=== PATIENT | male | born 1950 | race Caucasian/White ===

== ENCOUNTER 2019-07-16 20:44 | Inpatient (IN) | payer MEDICARE ==
[~2019-07-16] VITALS: Ht 172.7 cm; Wt 88.6 kg
[2019-07-16 21:15] LABS: BASOPHILS ABSOLUTE AUTO 0.07 K/mm3 (0.00-0.23); BASOPHILS PERCENT AUTO 1 % (0-2); EOSINOPHILS PERCENT AUTO 6 % (0-6); Hematocrit 42.2 % (37.0-53.0); Hemoglobin 13.6 g/dL (13.5-17.5); IMMATURE GRAN ABSOLUTE AUTO 0.09 K/mm3 (0.00-0.10); IMMATURE GRAN PERCENT AUTO 1 % (0-1); LYMPHOCYTES PERCENT AUTO 15 % (21-46); MONOCYTES ABSOLUTE AUTO 0.66 K/mm3 (0.16-1.47); MONOCYTES PERCENT AUTO 8 % (4-13); Mean Corpuscular HGB 30.7 pg (26.0-34.0); Mean Corpuscular HGB Conc 32.2 g/dL (31.5-36.5); Mean Corpuscular Volume 95 fL (80-100); Mean Platelet Volume 10.2 fL (9.1-12.4); NEUTROPHILS ABSOLUTE AUTO 6.14 K/mm3 (1.96-9.15); NEUTROPHILS PERCENT AUTO 70 % (41-73); Platelet Count 222 K/mm3 (150-400); RDW Coefficient Variation 13.7 % (11.7-14.2); Red Blood Cell Count 4.43 M/mm3 (4.30-5.90); White Blood Cell Count 8.76 K/mm3 (4.00-11.30)
[2019-07-16] MEDS ORDERED: ALLO300 PO (21:23)
[2019-07-16] MEDS ORDERED: ASCO500 PO (21:23)
[2019-07-16] MEDS ORDERED: Aspirin EC81 MG PO (21:23)
[2019-07-16] MEDS ORDERED: LISI5 PO (21:23)
[2019-07-16] MEDS ORDERED: MAGNESIUM OXID500 MG PO (21:23)
[2019-07-16] MEDS ORDERED: TAMS.4ER PO (21:24)
[2019-07-16] MEDS ORDERED: BASAGLAR K100 UNIT/1 SC (21:24)
[2019-07-16] MEDS ORDERED: Zocor40 MG PO (21:24)
[2019-07-16] MEDS ORDERED: ALOGLIPTIN6.25 MG PO (21:26)
[2019-07-16 21:31] LABS: International Normalized Ratio 1.09; Prothrombin Time Results 11.5 Sec (9.7-11.5)
[2019-07-16 21:35] LABS: Albumin, Blood 3.7 g/dL (3.4-5.0); Albumin/Globulin Ratio 1.3 (0.8-1.8); Bilirubin, Total 0.5 mg/dL (0.1-1.0); Bun/Creatinine Ratio 18.3 (12.0-20.0); Creatinine, Blood 1.53 mg/dL (0.60-1.20); Globulin, Blood 2.8 g/dL (2.2-4.0); Potassium, Blood 4.6 mmol/L (3.5-5.5); Total Protein, Blood 6.5 g/dL (6.4-8.2)
[2019-07-16] MEDS ORDERED: LOVA40 PO (22:18)
[2019-07-16] MEDS ORDERED: SILD50TA PO (22:19)
[2019-07-17 04:09] LABS: Hematocrit 37.9 % (37.0-53.0); Hemoglobin 12.3 g/dL (13.5-17.5); Mean Corpuscular HGB 31.3 pg (26.0-34.0); Mean Corpuscular HGB Conc 32.5 g/dL (31.5-36.5); Mean Corpuscular Volume 96 fL (80-100); Mean Platelet Volume 10.6 fL (9.1-12.4); Platelet Count 217 K/mm3 (150-400); RDW Coefficient Variation 13.8 % (11.7-14.2); Red Blood Cell Count 3.93 M/mm3 (4.30-5.90); White Blood Cell Count 9.06 K/mm3 (4.00-11.30)
[2019-07-17 04:35] LABS: Albumin, Blood 3.1 g/dL (3.4-5.0); Albumin/Globulin Ratio 1.3 (0.8-1.8); Bilirubin, Total 0.4 mg/dL (0.1-1.0); Bun/Creatinine Ratio 19.2 (12.0-20.0); Calcium, Blood 8.4 mg/dL (8.5-10.1); Creatinine, Blood 1.46 mg/dL (0.60-1.20); Globulin, Blood 2.3 g/dL (2.2-4.0); Potassium, Blood 4.2 mmol/L (3.5-5.5); Total Protein, Blood 5.4 g/dL (6.4-8.2)
--- NOTE | 2019-07-17 05:52 | NUR ---
END OF SHIFT SUMMARY PT TO PCU FROM ED VIA STRETCHER. ON RA. NONLABORED BREATHING, SP02>92%. DENIOES CP. DENIES SOB. PT ON BEDREST DUE TO MASSIVE BILAT PE'S. VSS. HEPARIN INFUSION STARTED, ADJUSTED AND BOLUS JUST GIVEN. NO SIGNS OF BLEEDING NOTED. ADMISSION PACKET COMPLETE. NEW IV STARTED IN ORDER TO INFUSE ORDERED FLUIDS, 1/2 NS. PT HAS RESTED T/O THE NIGHT POST ADMIT. HAS BEEN VERY POLITE AND COOPERATIVE AND AXO. USES CALL LIGHT APPROPRIATELY. BED IN LOWEST POSITIOPN. USING URINAL. WILL CONTINUE TO MONITOR UNTIUL SHIFT CHANGE.
--- NOTE | 2019-07-17 10:16 | NUR ---
ECHOCARDIOGRAM COMPLETED
--- NOTE | 2019-07-17 12:18 | NUR ---
PT AND S/O EXPRESSED THAT THEY DO NOT WISHED TO BE DISTURBED, PT EDUCATED ABOUT ROUNDING PT STS "I WANT LEFT ALONE FOR PEACE AND QUIET" PT AND SO ARE NOTED TO BE TALKING ON SPEAKER PHONE AT THIS TIME
--- NOTE | 2019-07-17 18:28 | NUR ---
SHIFT NOTE PT HAS DENIES SOB AND CP T/O SHIFT. NO SKIN ISSUES NOTED. VSS. PT AND S/O THIS AM HAD EXPRESSED UPSET THAT PT WAS AWOKE TO OBTAIN VITALS, CHEMBG AND GIVE MEDICATIONS PT STATED THAT HE DID NOT WANT DISTURBED UNLESS NEEDED, AGREED THAT PT WOULD BE LEFT UNDISTURBED UNTIL NEXT CHEMBG. AFTERNOON VITAL WAS HELD UNTIL CHEMBG PT HAD STATED HE WISHED TO BE LEFT ALONE, PT INSTURCTED TO USE CALL LIGHT FOR NEEDS PT AGREED. UPON TAKING EVEN CHEMBG PT BEGAN RAISING HIS VOICE AT THIS RN AND PCT HE HAD BEEN LEFT ALONE FOR 4 HOURS HE HAD ASKED, PT REMINDED THAT HE HAD DEMANDED TO BE LEFT ALONE BY STAFF. PT AND S/O DID EXPRESS THEY UNDERSTOOD THAT STAFF WAS FOLLOWING THEIR EXPLICIT REQUEST. PT AGREES, PT IS AGAIN UPDATED ON PENDING LABS, UPDATED ON RADIOLOGY REPORTS.
[2019-07-17] MEDS ORDERED: ALOGLIPTIN25 MG PO (19:33)
[2019-07-18 04:27] LABS: Calcium, Blood 8.5 mg/dL (8.5-10.1); Creatinine, Blood 1.39 mg/dL (0.60-1.20); Potassium, Blood 3.7 mmol/L (3.5-5.5)
--- NOTE | 2019-07-18 06:05 | NUR ---
PCU NOC SHIFT SUMMARY PATIENT ALERT AND ORIENTED T/O SHIFT X4. INDEPENDENT IN ROOM. AMBULATED TO BATHROOM WITH STEADY GAIT FOR A BOWEL MOVEMENT. PATIENT DENIES ANY PAIN T/O SHIFT. PATIENT REMAINS CLAMMY/DIAPHORETIC T/O SHIFT - PATIENT REPORTS THAT HE IS 'MOIST' AT BASELINE; MILD FEVER NOTED. PATIENT REMAINS IN SINUS AKIN T/O SHIFT IN THE MID TO HIGH 40'S-50'S - NO FURTHER CARDIAC EVENTS NOTED. PATIENT PLEASANT AND COOPERATIVE WITH CARE. EDUCATED EXTENSIVLY REGARDING ANTICOAGULATION AND PE. CALL LIGHT W/I REACH. WILL CONTINUE TO MONITOR AND GIVE REPORT TO DAYSHIFT RN.
[2019-07-18] MEDS ORDERED: ELIQUIS5 MG PO (09:15)
--- NOTE | 2019-07-18 09:20 | NUR ---
PT D/C HOME AFTER THOROUGH TEACHING VIA THIS RN AND DR ZEPEDA. RX'S FAXED TO [facility]. PT EXPRESSED UNDERSTANDING OF DC TEACHING, DENIES FURTHER NEEDS
== END 2019-07-18 09:50 | disposition home or self-care (01) | DRG 176 ==
LOC: ER 20:44 → PCU 20:45
PROVIDERS: Emergency Medicine; Hospitalist; ADMIT Internal Medicine
DX: I26.99 Other pulmonary embolism without acute cor pulmonale (principal); N17.9 Acute kidney failure, unspecified; E87.0 Hyperosmolality and hypernatremia; E78.5 Hyperlipidemia, unspecified; E11.22 Type 2 diabetes mellitus with diabetic chronic kidney disease; N18.3 Chronic kidney disease, stage 3 (moderate); I12.9 Hypertensive chronic kidney disease with stage 1 through stage 4 chronic kidney disease, or unspecified chronic kidney disease; E11.65 Type 2 diabetes mellitus with hyperglycemia; M10.9 Gout, unspecified; Z79.4 Long term (current) use of insulin; Z79.899 Other long term (current) drug therapy
CPT/HCPCS: 36415; 80048; 80053; 82947; 83036; 83880; 84484; 85025; 85027; 85303; 85306; 85610; 85730; 93005; 93010; 93306; 93970; 96365; 96366; 96372; 96374; 96375; 96376; 99285-25; A9270; G0378; J1644; J1650

== ENCOUNTER 2020-12-24 20:46 | Emergency (ER) | payer OTHER, MEDICARE ==
[~2020-12-24] VITALS: Ht 172.7 cm; Wt 88.0 kg
[~2020-12-24 20:46] MED LIST: ALLO300 PO; ALOGLIPTIN25 MG PO; ALOGLIPTIN6.25 MG PO; ASCO500 PO; Aspirin EC81 MG PO; BASAGLAR K100 UNIT/1 SC; ELIQUIS5 MG PO; LISI5 PO; LOVA40 PO; MAGNESIUM OXID500 MG PO; SILD50TA PO; TAMS.4ER PO; Zocor40 MG PO
== END 2020-12-24 21:22 | disposition home or self-care (01) ==
LOC: ER 20:46
DX: S40.021A Contusion of right upper arm, initial encounter (principal); Z79.01 Long term (current) use of anticoagulants; Z79.899 Other long term (current) drug therapy; W19.XXXA Unspecified fall, initial encounter
CPT/HCPCS: 99283

== ENCOUNTER 2022-03-05 08:20 | Emergency (ER) | payer OTHER ==
[~2022-03-05] VITALS: Ht 172.7 cm; Wt 81.7 kg
[2022-03-05 09:27] LABS: BASOPHILS ABSOLUTE AUTO 0.06 K/mm3 (0.00-0.23); BASOPHILS PERCENT AUTO 1 % (0-2); EOSINOPHILS ABSOLUTE AUTO 0.32 K/mm3 (0.00-0.68); EOSINOPHILS PERCENT AUTO 4 % (0-6); Hematocrit 49.3 % (37.0-53.0); Hemoglobin 16.6 g/dL (13.5-17.5); IMMATURE GRAN ABSOLUTE AUTO 0.04 K/mm3 (0.00-0.10); IMMATURE GRAN PERCENT AUTO 1 % (0-1); LYMPHOCYTES PERCENT AUTO 17 % (21-46); MONOCYTES ABSOLUTE AUTO 0.76 K/mm3 (0.16-1.47); MONOCYTES PERCENT AUTO 9 % (4-13); Mean Corpuscular HGB 30.8 pg (26.0-34.0); Mean Corpuscular HGB Conc 33.7 g/dL (31.5-36.5); Mean Corpuscular Volume 92 fL (80-100); Mean Platelet Volume 10.8 fL (9.1-12.4); NEUTROPHILS ABSOLUTE AUTO 5.92 K/mm3 (1.96-9.15); NEUTROPHILS PERCENT AUTO 70 % (41-73); Platelet Count 208 K/mm3 (150-400); RDW Coefficient Variation 14.8 % (11.7-14.2); RDW Standard Deviation 49.3 fL (35.1-46.3); Red Blood Cell Count 5.39 M/mm3 (4.30-5.90)
[2022-03-05 09:51] LABS: Albumin, Blood 3.6 g/dL (3.4-5.0); Albumin/Globulin Ratio 1.3 (0.8-1.8); Bilirubin, Total 0.6 mg/dL (0.1-1.0); Bun/Creatinine Ratio 22.9 (12.0-20.0); Calcium, Blood 9.3 mg/dL (8.5-10.1); Creatinine, Blood 1.66 mg/dL (0.60-1.20); Globulin, Blood 2.7 g/dL (2.2-4.0); Magnesium, Blood 2.3 mg/dL (1.6-2.4); Potassium, Blood 4.3 mmol/L (3.5-5.5); Thyroid Stimulating Hormone 4.17 uIU/mL (0.360-4.800); Total Protein, Blood 6.3 g/dL (6.4-8.2)
== END 2022-03-05 11:32 | disposition home or self-care (01) ==
LOC: ER 08:20
PROVIDERS: Emergency Medicine
DX: I47.1 Supraventricular tachycardia (principal); E11.9 Type 2 diabetes mellitus without complications; Z79.4 Long term (current) use of insulin; Z79.899 Other long term (current) drug therapy
CPT/HCPCS: 36415; 71045; 80053; 83735; 84443; 84484; 85025; 93005; 93010; J0153; J7030

== ENCOUNTER 2023-05-20 14:34 | Emergency (ER) | payer OTHER ==
[~2023-05-20] VITALS: Ht 172.7 cm; Wt 76.7 kg
[~2023-05-20 14:34] MED LIST changes: +ATOR40TA PO; +JARDIANCE25 MG PO
[2023-05-20 15:04] LABS: BASOPHILS ABSOLUTE AUTO 0.08 K/mm3 (0.00-0.23); BASOPHILS PERCENT AUTO 1 % (0-2); EOSINOPHILS ABSOLUTE AUTO 0.28 K/mm3 (0.00-0.68); EOSINOPHILS PERCENT AUTO 3 % (0-6); Hematocrit 49.6 % (37.0-53.0); Hemoglobin 16.7 g/dL (13.5-17.5); IMMATURE GRAN ABSOLUTE AUTO 0.04 K/mm3 (0.00-0.10); IMMATURE GRAN PERCENT AUTO 0 % (0-1); LYMPHOCYTES ABSOLUTE AUTO 1.75 K/mm3 (0.84-5.20); LYMPHOCYTES PERCENT AUTO 19 % (21-46); MONOCYTES ABSOLUTE AUTO 0.67 K/mm3 (0.16-1.47); MONOCYTES PERCENT AUTO 7 % (4-13); Mean Corpuscular HGB 30.3 pg (26.0-34.0); Mean Corpuscular HGB Conc 33.7 g/dL (31.5-36.5); Mean Corpuscular Volume 90 fL (80-100); NEUTROPHILS ABSOLUTE AUTO 6.49 K/mm3 (1.96-9.15); NEUTROPHILS PERCENT AUTO 70 % (41-73); Platelet Count 199 K/mm3 (150-400); RDW Coefficient Variation 14.8 % (11.7-14.2); RDW Standard Deviation 49.4 fL (35.1-46.3); Red Blood Cell Count 5.51 M/mm3 (4.30-5.90); White Blood Cell Count 9.31 K/mm3 (4.00-11.30)
[2023-05-20 15:23] LABS: Albumin, Blood 3.9 g/dL (3.4-5.0); Albumin/Globulin Ratio 1.5 (0.8-1.8); Bilirubin, Total 0.8 mg/dL (0.1-1.0); Bun/Creatinine Ratio 21.2 (12.0-20.0); Calcium, Blood 9.9 mg/dL (8.5-10.1); Creatinine, Blood 1.51 mg/dL (0.60-1.20); Globulin, Blood 2.6 g/dL (2.2-4.0); Potassium, Blood 4.2 mmol/L (3.5-5.5); Total Protein, Blood 6.5 g/dL (6.4-8.2)
[2023-05-20 19:00] VITALS: BP 128/79
[2023-05-20] MEDS ORDERED: PRED20 PO (19:19)
== END 2023-05-20 19:38 | disposition home or self-care (01) ==
LOC: ER 14:34
PROVIDERS: Physician Assistant
DX: J45.901 Unspecified asthma with (acute) exacerbation (principal); E11.9 Type 2 diabetes mellitus without complications; Z79.4 Long term (current) use of insulin; Z79.84 Long term (current) use of oral hypoglycemic drugs; Z79.01 Long term (current) use of anticoagulants; Z87.891 Personal history of nicotine dependence
CPT/HCPCS: 71260; 80053; 83880; 84484; 85025; 93005; 93010; 94640; 94664; 96361; 96374-59; 99285-25; A9270; J1100; J7030; Q9967

== ENCOUNTER 2023-10-23 16:33 | Inpatient (IN) | payer OTHER ==
[~2023-10-23] VITALS: Ht 175.3 cm; Wt 72.5 kg
[~2023-10-23 16:33] MED LIST changes: +PRED20 PO
[2023-10-23 18:19] LABS: Base Excess Venous 1.2 mmol/L; Bicarbonate Venous 24.4 mmol/L (24.0-30.0); PCO2 Venous 40.7 mmHg (38-42); pH Blood Venous 7.41 (7.34-7.37)
[2023-10-23] MEDS ORDERED: FLU VACC QS2023-24(6MOS UP)/PF 60 MCG/0.5 ML SYRINGE IM ONE (19:25)
[2023-10-23] MEDS ORDERED: Acetaminophen 325 MG TABLET PO PRN (19:25)
[2023-10-23] MEDS ORDERED: GUAI600T33 PO (19:58)
[2023-10-23] MEDS ORDERED: ALBU2.5V5 INH (19:58)
[2023-10-23] MEDS ORDERED: Acetaminophen650 M1 PO (19:59)
[2023-10-23] MEDS ORDERED: BASAGLAR K100 UNIT/4 SC (20:01)
[2023-10-23] MEDS ORDERED: CEFD300 PO (20:04)
[2023-10-23] MEDS ORDERED: TADA10TA PO (20:05)
[2023-10-23] MEDS ORDERED: Albuterol 2.5 MG/3 ML VIAL INH PRN (20:10)
[2023-10-23] MEDS ORDERED: ELIQUIS5 M2 PO (20:25)
[2023-10-23] MEDS ORDERED: Insulin Glargine-Yfgn 100 Unit/mL 3 ML SYR SC SCH (21:00)
[2023-10-23] MEDS ORDERED: CefTRIAXone Sodium 1,000 MG in NS 50 ML IV SCH (21:00)
[2023-10-23] MEDS ORDERED: Azithromycin 500 MG in NS 250 ML IV SCH (21:00)
[2023-10-23] MEDS ORDERED: Lactobacil 2-S.Thermo-Bifido 1 1 Cap PO SCH (21:00)
[2023-10-23] MEDS ORDERED: GuaiFENesin 600 MG TabCR PO SCH (21:00)
[2023-10-23] MEDS ORDERED: Apixaban 5 MG Tab PO SCH (21:00)
--- NOTE | 2023-10-23 21:00 | NUR ---
NEW ADMIT. PATIENT ADMITTED TO ROOM 304 FROM ER. PATIENT ARRIVED TO ROOM VIA GURNEY AND ONE PERSON TRANSFER. PATIENT SELF TRANSFERED FROM [facility] TO HOSPITAL BED. PATIENT ARRIVED TO ROOM WITH 2 L'S VIA NASAL CANNULA.
[2023-10-23 21:15] VITALS: BP 125/78
[2023-10-24 04:25] VITALS: BP 105/66
[2023-10-24 05:19] LABS: BASOPHILS ABSOLUTE AUTO 0.13 K/mm3 (0.00-0.23); BASOPHILS PERCENT AUTO 1 % (0-2); EOSINOPHILS ABSOLUTE AUTO 0.65 K/mm3 (0.00-0.68); EOSINOPHILS PERCENT AUTO 5 % (0-6); Hematocrit 45.7 % (37.0-53.0); Hemoglobin 14.7 g/dL (13.5-17.5); IMMATURE GRAN PERCENT AUTO 4 % (0-1); LYMPHOCYTES ABSOLUTE AUTO 1.39 K/mm3 (0.84-5.20); LYMPHOCYTES PERCENT AUTO 11 % (21-46); MONOCYTES ABSOLUTE AUTO 0.83 K/mm3 (0.16-1.47); MONOCYTES PERCENT AUTO 7 % (4-13); Mean Corpuscular HGB Conc 32.2 g/dL (31.5-36.5); Mean Corpuscular Volume 90 fL (80-100); Mean Platelet Volume 9.1 fL (9.1-12.4); NEUTROPHILS ABSOLUTE AUTO 9.27 K/mm3 (1.96-9.15); NEUTROPHILS PERCENT AUTO 73 % (41-73); Platelet Count 422 K/mm3 (150-400); RDW Coefficient Variation 15.1 % (11.7-14.2); RDW Standard Deviation 50.2 fL (35.1-46.3); Red Blood Cell Count 5.07 M/mm3 (4.30-5.90); White Blood Cell Count 12.77 K/mm3 (4.00-11.30)
[2023-10-24 06:01] LABS: Albumin, Blood 2.2 g/dL (3.4-5.0); Albumin/Globulin Ratio 0.6 (0.8-1.8); Bilirubin, Total 0.5 mg/dL (0.1-1.0); Bun/Creatinine Ratio 18.8 (12.0-20.0); Calcium, Blood 9.7 mg/dL (8.5-10.1); Creatinine, Blood 1.28 mg/dL (0.60-1.20); Globulin, Blood 3.8 g/dL (2.2-4.0); Potassium, Blood 4.4 mmol/L (3.5-5.5)
--- NOTE | 2023-10-24 06:44 | NUR ---
PATIENT IS ALERT AND ORIENTED X4. BMAT DONE; PATIENT IS INDEPENDENT IN ROOM. PATIENT HAS O2 RUNNING AT 2 L'S VIA NASAL CANNULA. PATIENT DENIES PAIN. PATIENT IS ABLE TO MAKE HIS NEEDS KNOWN. PATIENT CALLS APPROPRIATELY. NO ACUTE EVENTS OVERNIGHT. BED IS LOCKED IN THE LOWEST POSITION WITH CALL LIGHT IN REACH. NO S/S OF DISTRESS NOTED AT THIS TIME. CARE IS ONGOING.
[2023-10-24] MEDS ORDERED: Insulin Human Lispro 100 Units/ML 3ML Syringe SC SCH ×2 (07:30→18:00)
[2023-10-24 07:51] VITALS: BP 116/87
[2023-10-24] MEDS ORDERED: Empagliflozin 25 MG TAB PO SCH (09:00)
[2023-10-24] MEDS ORDERED: Allopurinol 300 MG Tab PO SCH ×2 (09:00→21:00)
[2023-10-24] MEDS ORDERED: Atorvastatin 40 MG Tab PO SCH (09:00)
[2023-10-24] MEDS ORDERED: Lisinopril 5 MG Tab PO SCH (09:00)
[2023-10-24] MEDS ORDERED: Lactated Ringer's 1,000 ML IV SCH (11:00)
[2023-10-24] MEDS ORDERED: LORazepam 1 MG Tab PO PRN (15:20)
[2023-10-24 15:23] VITALS: BP 107/72
--- NOTE | 2023-10-24 18:18 | NUR ---
PATIENT A/OX4, UP WITH SBA IN ROOM. VSS, 2LO2 TO MAINTAIN SATS, 3LO2 AT BASELINE. PATIENT SEEN BY SPEECH TODAY AND IS NOW NPO FOLLOWING SWALLOW EVAL. ABLE TO TAKE ORAL PILLS WHOLE WITH APPLESAUCE. Q6H BLOOD SUGARS. LR STARTED AT 125/HR. 22G IV TO RFA. CONTINENT OF BOWEL AND BLADDER. PLEASANT AND COOPERATIVE WITH CARE. NO NEW CONCERNS THIS SHIFT.
[2023-10-24 20:02] VITALS: BP 132/68
[2023-10-24] MEDS ORDERED: CefTRIAXone Sodium 2,000 MG in NS 100 ML IV SCH (21:00)
[2023-10-25 03:48] VITALS: BP 136/90
--- NOTE | 2023-10-25 03:54 | NUR ---
Shift Summary Mr. Lin is alert and oriented x 4. Respirations regular and unlabored. He is on room air. No cough noted. Skin is warm and dry. He has an IV in his right wrist with Lactated Ringers at 125 ml/hr. He took his pills one at a time in applesauce with no difficulty. His bed is in low position with call light in reach. Side rails up x 2.
[2023-10-25 05:10] LABS: BASOPHILS ABSOLUTE AUTO 0.12 K/mm3 (0.00-0.23); BASOPHILS PERCENT AUTO 1 % (0-2); EOSINOPHILS ABSOLUTE AUTO 0.58 K/mm3 (0.00-0.68); EOSINOPHILS PERCENT AUTO 5 % (0-6); Hematocrit 43.8 % (37.0-53.0); IMMATURE GRAN ABSOLUTE AUTO 0.32 K/mm3 (0.00-0.10); IMMATURE GRAN PERCENT AUTO 3 % (0-1); LYMPHOCYTES ABSOLUTE AUTO 1.25 K/mm3 (0.84-5.20); LYMPHOCYTES PERCENT AUTO 12 % (21-46); MONOCYTES ABSOLUTE AUTO 0.68 K/mm3 (0.16-1.47); MONOCYTES PERCENT AUTO 6 % (4-13); Mean Corpuscular HGB 29.4 pg (26.0-34.0); Mean Corpuscular Volume 92 fL (80-100); Mean Platelet Volume 9.3 fL (9.1-12.4); NEUTROPHILS ABSOLUTE AUTO 7.96 K/mm3 (1.96-9.15); NEUTROPHILS PERCENT AUTO 73 % (41-73); Platelet Count 390 K/mm3 (150-400); RDW Coefficient Variation 15.1 % (11.7-14.2); RDW Standard Deviation 51.7 fL (35.1-46.3); Red Blood Cell Count 4.76 M/mm3 (4.30-5.90); White Blood Cell Count 10.91 K/mm3 (4.00-11.30)
[2023-10-25 05:46] LABS: Albumin, Blood 2.1 g/dL (3.4-5.0); Albumin/Globulin Ratio 0.6 (0.8-1.8); Bilirubin, Total 0.5 mg/dL (0.1-1.0); Bun/Creatinine Ratio 15.6 (12.0-20.0); Calcium, Blood 9.6 mg/dL (8.5-10.1); Creatinine, Blood 1.41 mg/dL (0.60-1.20); Globulin, Blood 3.4 g/dL (2.2-4.0); Potassium, Blood 4.5 mmol/L (3.5-5.5); Total Protein, Blood 5.5 g/dL (6.4-8.2)
[2023-10-25 07:40] VITALS: BP 115/78
[2023-10-25 15:20] VITALS: BP 113/79
--- NOTE | 2023-10-25 18:06 | NUR ---
SHIFT SUMMARY: PT IS A 73 YEAR OLD MALE HERE FOR ACUTE RESPIRATORY FAILURE SECONDARY TO PNEUONMIA. HE DID UNDERGO THE BARRIUM SWALLOW TODAY; SHOWING SILENT ASPIRATION ON THIN LIQUIDS; DIET ORDERS UPDATED BY SPEECH. HE IS TOLERATING WELL. CONTINUE TO GET IV ANTIBIOTIC TREATMENT. HE IS ALERT AND ORIENTED X4, INDEPENDENT, MAKES NEEDS KNOWN. IN BED, GIRLFRIEND AT BEDSIDE, NO SIGNS OR SYMPTOMS OF DISTRESS. PLAN OF CARE ONGOING.
[2023-10-25 19:30] VITALS: BP 114/75
[2023-10-25] MEDS ORDERED: NS 100 ML IV ONE (20:41)
[2023-10-26 04:23] VITALS: BP 135/77
[2023-10-26 05:01] LABS: BASOPHILS ABSOLUTE AUTO 0.09 K/mm3 (0.00-0.23); BASOPHILS PERCENT AUTO 1 % (0-2); EOSINOPHILS ABSOLUTE AUTO 0.45 K/mm3 (0.00-0.68); EOSINOPHILS PERCENT AUTO 4 % (0-6); Hematocrit 42.5 % (37.0-53.0); Hemoglobin 13.9 g/dL (13.5-17.5); IMMATURE GRAN ABSOLUTE AUTO 0.16 K/mm3 (0.00-0.10); IMMATURE GRAN PERCENT AUTO 1 % (0-1); LYMPHOCYTES ABSOLUTE AUTO 1.11 K/mm3 (0.84-5.20); LYMPHOCYTES PERCENT AUTO 9 % (21-46); MONOCYTES ABSOLUTE AUTO 0.69 K/mm3 (0.16-1.47); MONOCYTES PERCENT AUTO 6 % (4-13); Mean Corpuscular HGB 29.3 pg (26.0-34.0); Mean Corpuscular HGB Conc 32.7 g/dL (31.5-36.5); Mean Corpuscular Volume 90 fL (80-100); Mean Platelet Volume 9.4 fL (9.1-12.4); NEUTROPHILS ABSOLUTE AUTO 9.37 K/mm3 (1.96-9.15); NEUTROPHILS PERCENT AUTO 79 % (41-73); Platelet Count 352 K/mm3 (150-400); RDW Standard Deviation 49.7 fL (35.1-46.3); Red Blood Cell Count 4.75 M/mm3 (4.30-5.90); White Blood Cell Count 11.87 K/mm3 (4.00-11.30)
--- NOTE | 2023-10-26 05:02 | NUR ---
Shift Summary Patient is alert and oriented x 4. Respirations regular and unlabored. Lung sounds clear. Skin warm and dry. He had a barium swallow done that showed aspiration of thin liquids. He is on Necter thick liquids and minced and moiste food. He has an IV in his Right wrist that is saline locked. He slept most of this shift. Bed is in low position. Call light in reach.
[2023-10-26 05:30] LABS: Bun/Creatinine Ratio 18.5 (12.0-20.0); Calcium, Blood 9.4 mg/dL (8.5-10.1); Creatinine, Blood 1.3 mg/dL (0.60-1.20); Potassium, Blood 4.4 mmol/L (3.5-5.5)
[2023-10-26 07:34] VITALS: BP 116/84
[2023-10-26] MEDS ORDERED: VISBIOME 112.51 EACH PO (10:55)
[2023-10-26] MEDS ORDERED: AMOCLA250S PO (10:55)
--- NOTE | 2023-10-26 12:56 | NUR ---
DISCHARGE NOTE: DISCUSSED DISCHARGE WITH PATIENT AND HIS GIRLFRIEND. SPEECH THERAPY CAME BY AND DISCUSSED DIET WITH PATIENT AND PROVIDED HANDOUT ON HIS DIET ORDER AND PACKETS OF THICKENER. HIS BELONGINGS WERE COLLECTED AND EDUCATION ON HOW TO USE HIS OXYGEN TANK WAS PROVIDED. PATIENT WAS WHEELED DOWN VIA WHEELCHAIR BY BUSGIRL. NO SIGNS OR SYMPTOMS OF DISTRESS DURING DISCHARGE.
== END 2023-10-26 12:11 | disposition home or self-care (01) | DRG 193 ==
LOC: ER 16:33 → MEDS 19:10 → ENPENDDIS 10-26 11:54 → MEDS 10-26 12:11
PROVIDERS: Emergency Medicine; Family Medicine; Internal Medicine; ADMIT Internal Medicine
DX: J18.9 Pneumonia, unspecified organism (principal); E43 Unspecified severe protein-calorie malnutrition; J96.01 Acute respiratory failure with hypoxia; I13.0 Hypertensive heart and chronic kidney disease with heart failure and stage 1 through stage 4 chronic kidney disease, or unspecified chronic kidney disease; I50.32 Chronic diastolic (congestive) heart failure; E87.1 Hypo-osmolality and hyponatremia; E11.22 Type 2 diabetes mellitus with diabetic chronic kidney disease; Z28.21 Immunization not carried out because of patient refusal; F41.9 Anxiety disorder, unspecified; N18.31 Chronic kidney disease, stage 3a; M10.9 Gout, unspecified; E78.5 Hyperlipidemia, unspecified; F43.20 Adjustment disorder, unspecified; Z68.25 Body mass index [BMI] 25.0-25.9, adult; Z86.711 Personal history of pulmonary embolism; Z86.718 Personal history of other venous thrombosis and embolism; Z87.442 Personal history of urinary calculi; Z95.2 Presence of prosthetic heart valve; Z87.891 Personal history of nicotine dependence; Z88.0 Allergy status to penicillin; Z88.8 Allergy status to other drugs, medicaments and biological substances; Z79.4 Long term (current) use of insulin; Z79.899 Other long term (current) drug therapy
CPT/HCPCS: 36415; 71260; 74230; 80048; 80053; 82803; 82947; 83880; 84484; 85025; 87070; 87205; 92526; 92610; 92611; 93005; 93010; 94760; 94762; 99285-25; A9270; J0456; J0696; J1815; J7050; J7120; Q9967

== ENCOUNTER 2023-11-10 12:41 | Emergency (ER) | payer OTHER ==
[~2023-11-10] VITALS: Ht 175.3 cm; Wt 72.6 kg
[~2023-11-10 12:41] MED LIST changes: +ALBU2.5V5 INH; +AMOCLA250S PO; +Acetaminophen650 M1 PO; +BASAGLAR K100 UNIT/4 SC; +CEFD300 PO; +ELIQUIS5 M2 PO; +GUAI600T33 PO; +TADA10TA PO; +VISBIOME 112.51 EACH PO
[2023-11-10] MEDS ORDERED: NS 1,000 ML IV SCH (13:10)
[2023-11-10 13:28] LABS: BASOPHILS ABSOLUTE AUTO 0.06 K/mm3 (0.00-0.23); BASOPHILS PERCENT AUTO 1 % (0-2); EOSINOPHILS ABSOLUTE AUTO 0.26 K/mm3 (0.00-0.68); EOSINOPHILS PERCENT AUTO 3 % (0-6); Hematocrit 46.1 % (37.0-53.0); Hemoglobin 15.2 g/dL (13.5-17.5); IMMATURE GRAN ABSOLUTE AUTO 0.04 K/mm3 (0.00-0.10); IMMATURE GRAN PERCENT AUTO 0 % (0-1); LYMPHOCYTES PERCENT AUTO 10 % (21-46); MONOCYTES ABSOLUTE AUTO 0.96 K/mm3 (0.16-1.47); MONOCYTES PERCENT AUTO 9 % (4-13); Mean Corpuscular HGB 29.5 pg (26.0-34.0); Mean Corpuscular Volume 89 fL (80-100); Mean Platelet Volume 10.9 fL (9.1-12.4); NEUTROPHILS ABSOLUTE AUTO 8.17 K/mm3 (1.96-9.15); NEUTROPHILS PERCENT AUTO 78 % (41-73); Platelet Count 181 K/mm3 (150-400); RDW Coefficient Variation 15.9 % (11.7-14.2); RDW Standard Deviation 50.7 fL (35.1-46.3); Red Blood Cell Count 5.16 M/mm3 (4.30-5.90); White Blood Cell Count 10.49 K/mm3 (4.00-11.30)
[2023-11-10 13:50] LABS: Albumin, Blood 3.2 g/dL (3.4-5.0); Bilirubin, Total 1.2 mg/dL (0.1-1.0); Bun/Creatinine Ratio 13.4 (12.0-20.0); Creatinine, Blood 1.49 mg/dL (0.60-1.20); Globulin, Blood 3.3 g/dL (2.2-4.0); Potassium, Blood 4.1 mmol/L (3.5-5.5); Total Protein, Blood 6.5 g/dL (6.4-8.2)
[2023-11-10 15:02] VITALS: BP 93/67
== END 2023-11-10 15:06 | disposition home or self-care (01) ==
LOC: ER 12:41
PROVIDERS: Physician Assistant
DX: E86.0 Dehydration (principal); R13.10 Dysphagia, unspecified; E11.22 Type 2 diabetes mellitus with diabetic chronic kidney disease; I12.9 Hypertensive chronic kidney disease with stage 1 through stage 4 chronic kidney disease, or unspecified chronic kidney disease; N18.9 Chronic kidney disease, unspecified; M10.9 Gout, unspecified; E78.5 Hyperlipidemia, unspecified
CPT/HCPCS: 71046; 80053; 85025; 96360; 96361; 99285-25; J7030

== ENCOUNTER 2024-03-18 11:20 | Emergency (ER) | payer OTHER ==
[~2024-03-18] VITALS: Ht 172.7 cm; Wt 73.5 kg
[~2024-03-18 11:20] MED LIST changes: +BISA5EC PO
[2024-03-18 11:45] LABS: BASOPHILS ABSOLUTE AUTO 0.06 K/mm3 (0.00-0.23); BASOPHILS PERCENT AUTO 1 % (0-2); EOSINOPHILS ABSOLUTE AUTO 0.28 K/mm3 (0.00-0.68); EOSINOPHILS PERCENT AUTO 3 % (0-6); IMMATURE GRAN ABSOLUTE AUTO 0.03 K/mm3 (0.00-0.10); IMMATURE GRAN PERCENT AUTO 0 % (0-1); LYMPHOCYTES ABSOLUTE AUTO 1.07 K/mm3 (0.84-5.20); LYMPHOCYTES PERCENT AUTO 13 % (21-46); MONOCYTES ABSOLUTE AUTO 0.66 K/mm3 (0.16-1.47); MONOCYTES PERCENT AUTO 8 % (4-13); Mean Corpuscular HGB 30.9 pg (26.0-34.0); Mean Corpuscular HGB Conc 33.3 g/dL (31.5-36.5); Mean Corpuscular Volume 93 fL (80-100); Mean Platelet Volume 9.9 fL (9.1-12.4); NEUTROPHILS ABSOLUTE AUTO 6.25 K/mm3 (1.96-9.15); NEUTROPHILS PERCENT AUTO 75 % (41-73); Platelet Count 164 K/mm3 (150-400); RDW Coefficient Variation 14.4 % (11.7-14.2); RDW Standard Deviation 49.3 fL (35.1-46.3); Red Blood Cell Count 4.85 M/mm3 (4.30-5.90); White Blood Cell Count 8.35 K/mm3 (4.00-11.30)
[2024-03-18 11:58] LABS: Albumin, Blood 3.4 g/dL (3.4-5.0); Albumin/Globulin Ratio 1.4 (0.8-1.8); Bilirubin, Total 0.7 mg/dL (0.1-1.0); Bun/Creatinine Ratio 21.6 (12.0-20.0); Calcium, Blood 9.3 mg/dL (8.5-10.1); Creatinine, Blood 1.34 mg/dL (0.60-1.20); Globulin, Blood 2.5 g/dL (2.2-4.0); Potassium, Blood 4.1 mmol/L (3.5-5.5); Total Protein, Blood 5.9 g/dL (6.4-8.2)
[2024-03-18 14:00] VITALS: BP 135/89
[2024-03-18] MEDS ORDERED: Lopressor 25 mg25 MG PO (14:16)
== END 2024-03-18 14:48 | disposition home or self-care (01) ==
LOC: ER 11:20
PROVIDERS: Emergency Medicine
DX: I49.3 Ventricular premature depolarization (principal); I10 Essential (primary) hypertension; F43.10 Post-traumatic stress disorder, unspecified; E11.9 Type 2 diabetes mellitus without complications; Z87.891 Personal history of nicotine dependence; Z79.899 Other long term (current) drug therapy
CPT/HCPCS: 71045; 80053; 84484; 85025; 93005; 93010; 99284-25

== ENCOUNTER 2024-08-13 23:00 | Emergency (ER) | payer OTHER ==
[~2024-08-13] VITALS: Ht 172.7 cm; Wt 78.9 kg
[~2024-08-13 23:00] MED LIST changes: +Lopressor 25 mg25 MG PO
[2024-08-14 00:12] LABS: BASOPHILS ABSOLUTE AUTO 0.09 K/mm3 (0.00-0.23); BASOPHILS PERCENT AUTO 1 % (0-2); EOSINOPHILS ABSOLUTE AUTO 0.92 K/mm3 (0.00-0.68); EOSINOPHILS PERCENT AUTO 11 % (0-6); Hematocrit 47.3 % (37.0-53.0); Hemoglobin 15.9 g/dL (13.5-17.5); IMMATURE GRAN ABSOLUTE AUTO 0.04 K/mm3 (0.00-0.10); IMMATURE GRAN PERCENT AUTO 1 % (0-1); LYMPHOCYTES ABSOLUTE AUTO 1.74 K/mm3 (0.84-5.20); LYMPHOCYTES PERCENT AUTO 21 % (21-46); MONOCYTES PERCENT AUTO 9 % (4-13); Mean Corpuscular HGB 31.5 pg (26.0-34.0); Mean Corpuscular HGB Conc 33.6 g/dL (31.5-36.5); Mean Corpuscular Volume 94 fL (80-100); Mean Platelet Volume 10.5 fL (9.1-12.4); NEUTROPHILS ABSOLUTE AUTO 4.65 K/mm3 (1.96-9.15); NEUTROPHILS PERCENT AUTO 57 % (41-73); Platelet Count 159 K/mm3 (150-400); RDW Coefficient Variation 14.2 % (11.7-14.2); RDW Standard Deviation 48.5 fL (35.1-46.3); Red Blood Cell Count 5.05 M/mm3 (4.30-5.90); White Blood Cell Count 8.14 K/mm3 (4.00-11.30)
[2024-08-14 00:31] LABS: Albumin, Blood 3.5 g/dL (3.4-5.0); Albumin/Globulin Ratio 1.5 (0.8-1.8); Bilirubin, Total 0.6 mg/dL (0.1-1.0); Bun/Creatinine Ratio 18.7 (12.0-20.0); Calcium, Blood 9.6 mg/dL (8.5-10.1); Creatinine, Blood 1.55 mg/dL (0.60-1.20); Globulin, Blood 2.4 g/dL (2.2-4.0); Potassium, Blood 4.3 mmol/L (3.5-5.5); Total Protein, Blood 5.9 g/dL (6.4-8.2)
[2024-08-14] MEDS ORDERED: LISI5 PO (02:09)
[2024-08-14 02:11] VITALS: BP 124/94
== END 2024-08-14 02:14 | disposition home or self-care (01) ==
LOC: ER 23:00
PROVIDERS: Student in an Organized Health Care Education/Training Program
DX: I13.0 Hypertensive heart and chronic kidney disease with heart failure and stage 1 through stage 4 chronic kidney disease, or unspecified chronic kidney disease (principal); E11.22 Type 2 diabetes mellitus with diabetic chronic kidney disease; N18.31 Chronic kidney disease, stage 3a; I50.30 Unspecified diastolic (congestive) heart failure; E78.5 Hyperlipidemia, unspecified; Z79.899 Other long term (current) drug therapy; Z88.0 Allergy status to penicillin; Z88.8 Allergy status to other drugs, medicaments and biological substances
CPT/HCPCS: 80053; 83880; 84484; 85025; 93005; 93010; 99283-25

== ENCOUNTER 2025-06-10 02:29 | Emergency (ER) | payer OTHER ==
[~2025-06-10] VITALS: Ht 172.7 cm; Wt 83.9 kg
[~2025-06-10 02:29] MED LIST changes: +HYDROCODONE-AC1 EA19 PO; +LIDO700A20 TOP
[2025-06-10 05:22] LABS: BASOPHILS ABSOLUTE AUTO 0.07 K/mm3 (0.00-0.23); BASOPHILS PERCENT AUTO 1 % (0-2); EOSINOPHILS ABSOLUTE AUTO 0.06 K/mm3 (0.00-0.68); EOSINOPHILS PERCENT AUTO 0 % (0-6); Hematocrit 48.9 % (37.0-53.0); Hemoglobin 16.7 g/dL (13.5-17.5); IMMATURE GRAN ABSOLUTE AUTO 0.05 K/mm3 (0.00-0.10); IMMATURE GRAN PERCENT AUTO 0 % (0-1); LYMPHOCYTES ABSOLUTE AUTO 0.60 K/mm3 (0.84-5.20); LYMPHOCYTES PERCENT AUTO 4 % (21-46); MONOCYTES ABSOLUTE AUTO 1.44 K/mm3 (0.16-1.47); MONOCYTES PERCENT AUTO 10 % (4-13); Mean Corpuscular HGB Conc 34.2 g/dL (31.5-36.5); Mean Corpuscular Volume 92 fL (80-100); NEUTROPHILS ABSOLUTE AUTO 12.92 K/mm3 (1.96-9.15); NEUTROPHILS PERCENT AUTO 85 % (41-73); NRBC ABSOLUTE 0.00 K/mm3 (0.00-0.02); NRBC Auto 0.0 /100 WBC (0.0-0.2); Platelet Count 155 K/mm3 (150-400); RDW Coefficient Variation 14.6 % (11.7-14.2); RDW Standard Deviation 49.1 fL (35.1-46.3)
[2025-06-10 05:45] LABS: Alanine Aminotransfer (ALT/SGP 18.0 U/L (12-78); Albumin, Blood 4.1 g/dL (3.4-5.0); Albumin/Globulin Ratio 1.5 (0.8-1.8); Anion Gap 12.0 mmol/L (3-11); Aspartate Aminotrans (AST/SGOT 16.0 U/L (12-37); Bilirubin, Total 1.9 mg/dL (0.1-1.0); Blood Urea Nitrogen 22.0 mg/dL (8-24); CO2, Blood 20.0 mmol/L (21-32); Calcium, Blood 9.4 mg/dL (8.5-10.1); Chloride, Blood 110.0 mmol/L (98-108); Creatinine, Blood 1.57 mg/dL (0.60-1.20); Globulin, Blood 2.8 g/dL (2.2-4.0); Glucose, Blood 180.0 mg/dL (70-99); Magnesium, Blood 2.3 mg/dL (1.6-2.4); Potassium, Blood 4.2 mmol/L (3.5-5.5); Sodium, Blood 138.0 mmol/L (136-145); Total Protein, Blood 6.9 g/dL (6.4-8.2)
[2025-06-10 06:02] VITALS: BP 113/86
[2025-06-10 06:03] LABS: Source, Urine Clean Catch
[2025-06-10 06:09] LABS: Bilirubin, Urine Neg (Neg); Glucose Qualitative, Urine 4+ (Neg); Ketones, Urine 2+ (Neg); Leukocyte Esterase, Urine Neg (Neg); Protein, Urine Neg (Neg); Specific Gravity, Urine 1.020 (1.003-1.022); Urobilinogen, Urine NORM (Normal)
[2025-06-10 06:38] LABS: Color, Urine Yellow (P-Yellow)
== END 2025-06-10 07:09 | disposition home or self-care (01) ==
LOC: ER 02:29
PROVIDERS: Student in an Organized Health Care Education/Training Program
DX: R41.0 Disorientation, unspecified (principal); Z03.821 Encounter for observation for suspected ingested foreign body ruled out; E78.5 Hyperlipidemia, unspecified; I13.0 Hypertensive heart and chronic kidney disease with heart failure and stage 1 through stage 4 chronic kidney disease, or unspecified chronic kidney disease; E11.22 Type 2 diabetes mellitus with diabetic chronic kidney disease; N18.31 Chronic kidney disease, stage 3a; I50.30 Unspecified diastolic (congestive) heart failure; Z87.891 Personal history of nicotine dependence; Z79.899 Other long term (current) drug therapy; Z88.0 Allergy status to penicillin; Z88.8 Allergy status to other drugs, medicaments and biological substances
CPT/HCPCS: 70450; 71046; 80053; 81003; 83735; 85025; 99284-25